=== PATIENT | male | born 1960 | race African-American/Black ===

== ENCOUNTER 2023-10-28 06:57 | Day surgery (SDC) | payer MEDICARE ==
[~2023-10-28] VITALS: Ht 177.8 cm; Wt 118.8 kg
[2023-10-28] VITALS (10 sets, daily range): BP systolic 116–159; BP diastolic 53–97; PULSE 50–63; RESP 11–19; TEMP 98; O2SAT 94–98
[2023-10-28] MEDS ORDERED: diphenhydrAMINE 25mg capsule PO PRN (07:20)
[2023-10-28] MEDS ORDERED: EZET10TA48 PO (07:25)
[2023-10-28] MEDS ORDERED: ASPI-1144 PO (07:25)
[2023-10-28] MEDS ORDERED: LOSA25TA41 PO (07:25)
[2023-10-28] MEDS ORDERED: SITA50TA7 PO (07:25)
[2023-10-28] MEDS ORDERED: ROSU40TA71 PO (07:25)
[2023-10-28] MEDS: sodium bicarbonate 1meq/ml syr 150 ML in dextrose 5%-water 1,000 ML IV ONE (07:55)
[2023-10-28] MEDS: normal saline 1,000 ML IV SCH (07:55)
[2023-10-28 08:07] LABS: BASOPHILS # (AUTO) 0.1 X10'3 (0-0.2); BASOPHILS % (AUTO) 1.1 % (0-1); EOSINOPHILS # (AUTO) 0.6 X10'3 (0-0.9); EOSINOPHILS % (AUTO) 9.1 % (0-6); HEMATOCRIT 43.9 % (42.0-52.0); HEMOGLOBIN 14.5 g/dl (14.0-17.9); LYMPHOCYTES # (AUTO) 2.6 X10'3 (1.1-4.8); LYMPHOCYTES % (AUTO) 40.3 % (21-51); MEAN CORPUSCULAR HEMOGLOBIN 28.8 PG (27.0-31.0); MEAN CORPUSCULAR HGB CONC 32.9 g/dL (33.0-36.5); MEAN CORPUSCULAR VOLUME 87.4 FL (78-98); MEAN PLATELET VOLUME 9.2 FL (7.4-10.4); MONOCYTES # (AUTO) 0.5 X10'3 (0-0.9); NEUTROPHILS # (AUTO) 2.6 X10'3 (1.8-7.7); NEUTROPHILS % (AUTO) 41.5 % (42-75); PLATELET COUNT 255 X10'3 (140-440); RED BLOOD COUNT 5.02 X10'6 (4.70-6.10); RED CELL DISTRIBUTION WIDTH 15.1 % (11.5-14.5); WHITE BLOOD COUNT 6.4 X10'3 (4.5-11.0)
[2023-10-28 08:17] LABS: INR 1.1 INR; PROTHROMBIN TIME 11.1 SECONDS (9.0-12.0)
[2023-10-28] MEDS ORDERED: iohexol 350MG/ML 100ml bottle IV ONE (08:32)
[2023-10-28] MEDS ORDERED: iohexol 350 MG/ML 50ML vial IV ONE (08:32)
[2023-10-28] MEDS ORDERED: heparin 1,000unit/ml 10ml vial 10 ML ONE (08:32)
[2023-10-28] MEDS ORDERED: verapamil 2.5 mg/ml inj IV ONE (08:32)
[2023-10-28] MEDS ORDERED: fentaNYL/PF 50MCG/1 ML 2ML syringe ONE (08:32)
[2023-10-28] MEDS ORDERED: midazolam 1 mg/ML 2ml injection ONE ×2 (08:32→09:22)
[2023-10-28] MEDS ORDERED: LIDOcaine 1% (10mg/ml) 2ml vial ONE (08:32)
[2023-10-28] MEDS ORDERED: nitroGLYCERIN 500mcg/5mL D5W 5 ML IV ONE (08:33)
[2023-10-28 08:38] LABS: ANION GAP 7 (8-16); BLOOD UREA NITROGEN 16 MG/DL (7-18); BUN/CREATININE RATIO 17.6 (10.0-20.0); CHLORIDE 107 MMOL/L (99-107); CREATININE 0.91 MG/DL (0.60-1.10); GLUCOSE 126 MG/DL (70-104); POTASSIUM 3.9 MMOL/L (3.5-5.1); SODIUM 141 MMOL/L (135-145); TOTAL CARBON DIOXIDE 26.8 MMOL/L (24-32)
[2023-10-28 08:39] LABS: ALBUMIN 3.3 G/DL (3.4-5.0); CALCIUM 8.6 MG/DL (8.5-10.1); eCRCL 88 ML/MIN; eGFR > 90 ML/MIN
[2023-10-28] MEDS ORDERED: proCHLORperazine 10 MG/2 ml inj IV PRN (10:30)
[2023-10-28] MEDS ORDERED: HYDROcodone/acetaminophen 5mg/325mg tablet PO PRN (10:30)
[2023-10-28] MEDS ORDERED: HYDROcodone/acetaminophen 10/325mg tab PO PRN (10:30)
[2023-10-28] MEDS ORDERED: ondansetron/PF 4mg/2ml inj IV PRN (10:30)
== END 2023-10-28 13:50 | disposition home or self-care (01) ==
LOC: SSTAY O 06:57
PROVIDERS: ATTEND Internal Medicine Cardiovascular Disease
DX: R94.39 Abnormal result of other cardiovascular function study (principal); I10 Essential (primary) hypertension; E11.9 Type 2 diabetes mellitus without complications; E78.5 Hyperlipidemia, unspecified; E66.3 Overweight; F41.9 Anxiety disorder, unspecified; Z79.82 Long term (current) use of aspirin; Z79.899 Other long term (current) drug therapy; Z68.37 Body mass index [BMI] 37.0-37.9, adult; Z88.8 Allergy status to other drugs, medicaments and biological substances; Z82.49 Family history of ischemic heart disease and other diseases of the circulatory system
CPT/HCPCS: 36415; 80048; 83735; 85025; 85610; 93005; 93458; 99152; 99153; J1644; J2250; J3010; J3490; J7030; J7070; Q9967; A6258; A6402; A6449; C1894